=== PATIENT | male | born 1955 | race Two or more races ===

== ENCOUNTER 2025-03-26 09:34 | Emergency (ER) | payer OTHER ==
[~2025-03-26] VITALS: Ht 167.6 cm; Wt 136.1 kg
[2025-03-26] MEDS ORDERED: 0.9 % SODIUM CHLORIDE 1,000 ML IV SCH (09:45)
[2025-03-26] MEDS ORDERED: FUROsemide 20 MG/2 ML VIAL ONE (10:07)
[2025-03-26] MEDS ORDERED: FUROsemide 20 MG/2 ML VIAL IV ONE (10:15)
[2025-03-26] MEDS ORDERED: NITROGLYCERIN 250 ML IV SCH (10:15)
[2025-03-26 11:05] LABS: ABG PH 7.388 (7.35-7.45); ABG pCO2 41.7 mmHg (35-45); BASE EXCESS -0.5 mmol/l; BICARBONATE 24.5 mmol/l (23-25); SaO2 99.1 %; Tco2 25.8 mmol/l
[2025-03-26 11:12] LABS: URINE APPEARANCE Clear; URINE BILIRRUBIN Negative (NEGATIVE); URINE BLOOD Large; URINE COLOR Yellow; URINE KETONE Trace (NEGATIVE); URINE LEUKOCYTE Negative; URINE NITRATE Negative; URINE PROTEIN 30 (NEGATIVE); URINE UROBILINOGEN 0.2 E.U./dl
[2025-03-26 11:13] LABS: BASO % 0.4 % (0.1-1.2); EOS # 0.04 (0.04-0.54); EOS % 0.4 % (0.7-7.0); HEMATOCRIT 42.9 % (40.1-51.0); HEMOGLOBIN 14.9 g/dL (13.7-17.5); LYMPH # 1.62 (1.18-3.74); LYMPH % 15.5 % (19.3-53.1); MONO # 0.42 (0.24-0.82); NEUT # 8.26 (1.56-6.13); NEUT % 79.2 % (34.0-71.1); PLATELET COUNT 242 K/uL (163-369); RED CELL DISTRIBUTION WIDTH 13.7 % (11.6-14.4); URINE BACTERIA 24.4 uL (0.0-1933); URINE RBC 1077.7 uL (0.0-20.8); URINE WBC 6.6 uL (0.0-23.2)
[2025-03-26 11:15] LABS: URINE CAST 0.29 uL (0.0-1.40); URINE EPITHELIAL CELLS 0.7 uL (0.0-38.8); URINE GLUCOSE 250 MG/DL (NEGATIVE)
[2025-03-26 11:39] LABS: COVID-19 AG NEGATIVE (NEGATIVE); INFLUENZA A AG NEGATIVE (NEGATIVE); INFLUENZA B AG NEGATIVE (NEGATIVE)
[2025-03-26 11:41] LABS: CALCIUM 8.8 mg/dL (8.5-10.1); CREATININE SERUM 1.21 mg/dL (0.70-1.30); GFR 59.81; POTASSIUM 3.01 mEq/L (3.5-5.1)
[2025-03-26 15:57] LABS: o2 70 %
[2025-03-26 15:58] LABS: allen test SATISFACTORY; mode MECHANI VENTILATOR; puncture site RADIAL RIGHT
== END 2025-03-26 13:28 | disposition designated cancer center or children's hospital (05) ==
LOC: ER 09:34
PROVIDERS: Emergency Medicine
DX: I62.9 Nontraumatic intracranial hemorrhage, unspecified (principal)